=== PATIENT | male | born 1975 | race Hispanic/Latino ===

== ENCOUNTER → 2018-10-18 | Outpatient (CLI) | payer OTHER | END | disposition home or self-care (01) | LOC: RAH 14:22 | PROVIDERS: ATTEND Physical Medicine & Rehabilitation | DX: M54.5 Low back pain (principal) | CPT/HCPCS: 72110 ==

== ENCOUNTER → 2020-11-05 | Outpatient (CLI) | payer OTHER | END | disposition home or self-care (01) | LOC: RAH 13:54 | PROVIDERS: ATTEND Physical Medicine & Rehabilitation | DX: M25.521 Pain in right elbow (principal) | CPT/HCPCS: 73080 ==

== ENCOUNTER → 2020-11-25 | Outpatient (CLI) | payer OTHER | END | disposition home or self-care (01) | LOC: RAH 15:30 | PROVIDERS: ATTEND Internal Medicine Cardiovascular Disease | DX: Z13.6 Encounter for screening for cardiovascular disorders (principal) | CPT/HCPCS: 75571 ==